=== PATIENT | female | born 1990 | race Caucasian/White ===

== ENCOUNTER 2020-02-24 00:28 | Emergency (ER) | payer BC ==
[~2020-02-24] VITALS: Ht 157.5 cm; Wt 81.8 kg
[2020-02-24] MEDS ORDERED: SUMA50TA2 PO (00:40)
[2020-02-24] MEDS ORDERED: EPIP0.3I2 IM (00:40)
[2020-02-24] MEDS ORDERED: TETRACAINE 0.5% OPHTH SOLN 4ML OD ONE (01:00)
[2020-02-24] MEDS ORDERED: FLUORESCEIN OPHTH 1 MG STRIP OD ONE (01:00)
[2020-02-24] MEDS ORDERED: CIPROFLOXACIN 0.3% OPHTH SOLN 2.5ML OD ONE (01:15)
[2020-02-24 01:19] VITALS: BP 138/71
[2020-02-24] MEDS ORDERED: OCUF0.25 OD (01:24)
== END 2020-02-24 01:30 | disposition home or self-care (01) ==
LOC: M ED 00:28
DX: H18.821 Corneal disorder due to contact lens, right eye (principal); S05.01XA Injury of conjunctiva and corneal abrasion without foreign body, right eye, initial encounter; Z79.899 Other long term (current) drug therapy; Z88.0 Allergy status to penicillin; Z88.1 Allergy status to other antibiotic agents; Y92.9 Unspecified place or not applicable; Y93.E8 Activity, other personal hygiene; Y99.9 Unspecified external cause status